=== PATIENT | female | born 1950 | race Caucasian/White ===

== ENCOUNTER → 2016-05-18 07:28 | Day surgery (SDC) | payer BC ==
[~2016-05-18 07:28] MED LIST: Buffered Lidocaine 1% SYR 3ML* 3 ML/SYR SYRINGE INTRADERM ONE; Bupivacaine 0.25% W/EPI* 50 ML VIAL ONE; Clindamycin 900 MG IVPREMIX(* 900 MG/50 ML SDV IV ONE; Dexamethasone IV* 4 MG/ML 1 ML (4 MG) IV SLOW PU ONE; Dexamethasone IV* 4 MG/ML 1 ML (4 MG) ONE; EPHEDrine (Pressors)* 50 MG/ML VIAL ONE; Famotidine IV* 10 MG/ML 2 ML (20 mg) IV ONE; Famotidine IV* 10 MG/ML 2 ML (20 mg) ONE; Ketorolac INJ* 30 MG/ML 1 ML VIAL ONE; Lidocaine 2% PF * 5 ML VIAL ONE; Midazolam* 1 MG/ML 5 ML VIAL (5 MG) ONE; Ondansetron INJ* 2 MG/ML VIAL ONE; PROCHLORPERAZINE INJ 5 MG/ML 2 ML VIAL IV PRN; Propofol* 10 MG/ML 20 ML BTL IV PUSH ONE; Succinylcholine* 20 MG/ML 10 ML VIAL ONE; fentaNYL* 50 MCG/ML 2 ML VIAL (100 MCG VIAL) ONE; oxyCODONE/Acetamin 5/325 MG* TAB ONE; oxyCODONE/Acetamin 5/325 MG* TAB PO PRN
--- NOTE | 2016-05-18 10:25 | SURGPN ---
Brief Operative Note - Surgery Procedures: Procedures OPERATIVE REPORT PRE-OP: Cholelithiasis, abdominal pain POST-OP: Same PROCEDURE: Laparoscopic cholecystectomy SURGEON: MD Amada ANESTHESIA: General with local, Dr. Smart ASST: AMRIK Holder; TAHIRA Diaz IVF: 1 liter of crystalloid EBL: min SPECIMEN: gallbladder DRAIN: none WOUND CLASS: 2 COMPLICATIONS: none TO PACU
[2016-05-18] MEDS: fentaNYL* 50 MCG/ML 2 ML VIAL (100 MCG VIAL) IV PRN ×2 (11:08→11:19)
[2016-05-18 12:06] VITALS: BP 140/77
--- NOTE | 2016-05-19 03:16 | OP ---
DATE OF OPERATION: 05/18/16 - [facility] DATE OF : 52 SURGEON: Mark Ybarra MD MOLD CARPENTER: AMRIK Sinha and AMRIK Meyer-student. ANESTHESIOLOGIST: Dr. Smart. ANESTHESIA: General with local. PRE-OP DIAGNOSIS: Cholelithiasis and right upper quadrant abdominal pain. POST-OP DIAGNOSIS: Cholelithiasis and right upper quadrant abdominal pain. OPERATIVE PROCEDURE: Laparoscopic cholecystectomy. ESTIMATED BLOOD LOSS: Minimal. IV FLUIDS: 1 L of crystalloid. WOUND CLASSIFICATION: 2. DRAINS: None. COMPLICATIONS: None. SPECIMENS: Gallbladder. DESCRIPTION OF PROCEDURE: Written informed consent was obtained. The abdomen was marked with indelible ink and preoperative antibiotics were administered. The patient was taken to the operating room and placed in the supine position. Sequential compression devices and a warming blanket were applied. The abdomen was prepped and draped in a usual sterile fashion. Time-out verification was completed. A small transverse incision was made just above the umbilicus to midline. The peritoneal cavity was entered under direct vision and a 12 mm blood port was inserted to the abdominal cavity. The abdomen was insufflated with 15 mm of mercury and under direct vision, an 11 mm epigastric port was placed and two 5 mm ports were placed on the right side of the abdominal wall. The gallbladder was identified. It appeared to be without evidence of acute or chronic inflammation; however, there were some omental adhesions. The liver appeared to be somewhat redder in color without evidence of significant other abnormality. There was some omental adhesion from the gallbladder, which were taken down sharply to expose the infundibular area of the gallbladder. With careful dissection, the peritoneum along the medial and lateral aspect of the gallbladder in this area was taken down. With care, the cystic duct and artery were carefully identified as they entered the gallbladder. It was obvious that there were some several moderate to large sized gallstones in the infundibulum, which were quite mobile and upon this portion of the dissection. The cystic duct did not appear to be dilated. I took a considerable portion of the inferior part of the gallbladder off the liver bed using a critical view technique to assure myself of these 2 structures as they entered the gallbladder. Once this was complete, the cystic duct and artery were then doubly clipped and divided. The gallbladder was removed from the liver bed using cautery and placing in an Endo catch bag and brought out through the umbilical incision. The liver bed was then examined as well as the dissection area. There was no evidence of bleeding or bile leak. All ports were removed under direct vision of the camera. There was no abdominal wall bleeding. The umbilical fascia was closed with interrupted 0 Polysorb suture. The skin at all 4 incisions were approximated with subcuticular 4-0 Polysorb suture. Steri-Strips and sterile dressings were applied. The patient tolerated the procedure well, was taken to the recovery room in stable condition. [id number] #: [id number] [facility]
== END | disposition home or self-care (01) ==
LOC: OR 07:28
PROVIDERS: ATTEND Surgery
DX: K80.10 Calculus of gallbladder with chronic cholecystitis without obstruction (principal); I10 Essential (primary) hypertension; K21.9 Gastro-esophageal reflux disease without esophagitis
CPT/HCPCS: 88304; A9270-GY; J0330; J1100; J1885; J2250; J2405; J2704; J3010